=== PATIENT | male | born 1990 | race Caucasian/White ===

== ENCOUNTER 2017-11-27 15:23 | Emergency (ER) | payer OTHER, MEDICAID ==
[~2017-11-27] VITALS: Ht 182.9 cm; Wt 75.0 kg
[2017-11-27] MEDS ORDERED: LIDOCAINE-MPF 1%, 5ML ONE (16:20)
[2017-11-27] MEDS ORDERED: LIDOCAINE 1%, 10ML INFIL ONE (16:30)
[2017-11-27 16:55] VITALS: BP 111/68
== END 2017-11-27 17:01 | disposition home or self-care (01) ==
LOC: ED 16:30
DX: S61.230A Puncture wound without foreign body of right index finger without damage to nail, initial encounter (principal); Y04.0XXA Assault by unarmed brawl or fight, initial encounter; Y93.89 Activity, other specified; Y92.89 Other specified places as the place of occurrence of the external cause; Y99.8 Other external cause status
CPT/HCPCS: 87070; 87077; 87186; 87205; 99285

== ENCOUNTER 2021-03-16 14:17 | Emergency (ER) | payer MEDICAID, OTHER ==
[~2021-03-16] VITALS: Ht 182.9 cm; Wt 74.8 kg
[2021-03-16 15:53] LABS: BASOPHILS % (AUTO) 1 % (0-1); EOSINOPHILS % (AUTO) 1 % (1-7); LYMPHOCYTES % (AUTO) 18 % (22-44); MEAN CORPUSCULAR HGB CONC 34.2 g/dL (33.2-36.2); MEAN PLATELET VOLUME 7.7 fL (7.4-10.4); MONOCYTES % (AUTO) 9 % (2-9); NEUTROPHILS % (AUTO) 71 % (42-75); PLATELET COUNT 307 x10^3/uL (130-400); RED BLOOD COUNT 4.75 x10^6/uL (4.38-5.82); RED CELL DISTRIBUTION WIDTH 11.9 % (9.4-14.8)
[2021-03-16 17:20] VITALS: BP 126/57
--- NOTE | 2021-03-16 17:21 | NUR ---
PT REC'VD DISCHARGE INSTRUCTIONS AND EDUCATION. PT HAD NO FURTHER QUESTIONS. PT AMBULATED TO DC AREA, STEADY GAIT, WITH SIGNIFICANT OTHER.
== END 2021-03-16 17:59 | disposition home or self-care (01) ==
LOC: ED 15:52
DX: L02.414 Cutaneous abscess of left upper limb (principal); F15.20 Other stimulant dependence, uncomplicated
CPT/HCPCS: 36415; 85025; 99284